=== PATIENT | male | born 2000 | race Caucasian/White ===

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

== ENCOUNTER → 2020-09-16 | Outpatient (REF) ==
[~2020-09-16] MED LIST: CEPHALEXIN500 M1 PO; DOXYCYCLINE HY100 MG PO
== END ==
LOC: WSOH 11:00
DX: Z01.10 Encounter for examination of ears and hearing without abnormal findings (principal)